=== PATIENT | female | born 1950 | race Hispanic/Latino ===

== ENCOUNTER → 2025-04-17 | Outpatient (REF) | payer OTHER | LOC: MAMMO 09:42 | PROVIDERS: ATTEND Family Medicine | DX: N60.01 Solitary cyst of right breast (principal) | CPT/HCPCS: 77066 ==

== ENCOUNTER → 2025-05-09 | Outpatient (REF) | payer OTHER | LOC: US 08:37 | PROVIDERS: ATTEND Family Medicine | DX: N63.10 Unspecified lump in the right breast, unspecified quadrant (principal) | CPT/HCPCS: 88305 ==